=== PATIENT | female | born 1985 | race Caucasian/White ===

== ENCOUNTER 2016-12-05 04:06 | Emergency (ER) | payer BC ==
[~2016-12-05] VITALS: Ht 157.5 cm; Wt 49.6 kg
[~2016-12-05 04:06] MED LIST: NAPR250T2 PO
[2016-12-05 04:11] VITALS: TEMP 37; Ht 157.5 cm; Wt 49.6 kg
[2016-12-05] MEDS ORDERED: ONDANSETRON 4MG OD TAB PO STA (04:24)
[2016-12-05] MEDS ORDERED: KETOROLAC TROMETHAMINE 60 MG/2 ML VIAL IM STA (04:24)
--- NOTE | 2016-12-05 04:26 | EMERGENCY ROOM VISIT NOTE ---
History Report prepared by Jamila: Severino Kraus Under the Supervision of: Dr. Alma Stevens D.O. First contact with patient: 04:12 Chief Complaint: HEADACHE Stated Complaint: MIGRAINE History of Present Illness The patient is a 31 year old female who presents to the Emergency Room with complaints of a persistent migraine headache since 0800 yesterday. The patient had three doses of Imitrex, which has not helped. The patient also experienced multiple episodes of vomiting since the onset of her headache. She is slightly photophobic. The patient denies any urinary or bowel issues. The patient is not sure what triggered this migraine, although past migraines have been triggered by menstrual periods. The patient has not had increased stress or anxiety lately. She denies the possibility of . Source of History: patient Onset: 0800 yesterday Position: head Quality: other (migraine) Timing: other (persistent) Associated Symptoms: + nausea, + vomiting, No diarrhea, No urinary symptoms Review of Systems See HPI for pertinent positives & negatives. A total of 10 systems reviewed and were otherwise negative. Past Medical & Surgical Medical Problems: (1) Bronchitis (2) Conjunctivitis (3) Cough (4) Headache (5) Low back pain (6) Migraine (7) Pharyngitis (8) Pneumonia (9) Pneumonia (10) Spasm of back muscles (11) Strep pharyngitis Surgical Problems: (1) H/O removal of cyst Family History Cancer Diabetes mellitus Heart disease Hypertension Social History Smoking Status: Current Every Day Smoker Alcohol Use: none Drug Use: none Marital Status: single Housing Status: lives with significant other Occupation Status: employed Current/Historical Medications Scheduled PRN Irodkmn-Wtbcbnigrvibg-Hasorrgl (Excedrin Migraine), 1 TAB PO Q8 PRN for Migraine Naproxen (Naprosyn), 750 MG PO Q6H PRN for Pain Sumatriptan Succinate (Imitrex), 50 MG PO UD PRN for Migraine Allergies Coded Allergies: Shellfish (Verified Allergy, Mild, -, 10/15/16) Amoxicillin (Verified Allergy, Unknown, unknown, 10/15/16) Penicillins (Verified Allergy, Unknown, 10/15/16) Physical Exam Vital Signs Date Time Temp Pulse Resp B/P Pulse Ox O2 Delivery O2 Flow Rate FiO2 12/05/16 05:42 82 18 92/64 100 12/05/16 04:11 37.0 99 18 95/55 98 Room Air Physical Exam HEENT: Head - normocephalic and atraumatic Pupils are equal, round, and reactive to light. Extraocular eye muscles are intact, and sclera are anicteric. Nose - moist nasal mucosa without discharge. Mouth - moist buccal mucosa. Oropharynx is nonerythematous and there is no tonsillar exudate or edema noted. Neck: Supple; no JVD, nuchal rigidity, cervical lymphadenopathy. Heart: Regular rate and rhythm. There is a normal S1 and S2 with no murmurs, clicks, or gallops appreciated. Lungs: Clear to auscultation bilaterally with no wheezes, rales, or rhonchi. Abdomen: Soft, completely nontender, nondistended, with good bowel sounds. There are no palpable pulsatile masses or hepatosplenomegaly. There is no guarding, rigidity, or rebound noted. Extremities: No evidence of cyanosis, clubbing, or edema. There are easily palpable peripheral pulses. Skin: warm and dry with good turgor and no rashes. Medical Decision & Procedures Medications Administered Medications (Trade) Dose Ordered Sig/Jen Route Start Time Stop Time Status Last Admin Dose Admin Ketorolac Tromethamine (Toradol Inj) 45 mg NOW STAT IM 12/05/16 04:24 12/05/16 04:26 DC 12/05/16 04:32 45 MG Ondansetron HCl (Zofran Odt) 4 mg NOW STAT PO 12/05/16 04:24 12/05/16 04:26 DC 12/05/16 04:31 4 MG Oxycodone/ Acetaminophen (Percocet 5/ 325MG Home Pack) 1 homepack UD ONCE PO 12/05/16 05:30 12/05/16 05:31 DC 12/05/16 05:39 1 HOMEPACK Procedure Medications administered include Zofran PO, Toradol IM, Percocet PO home pack. ED Course 0420: Past medical records reviewed. The patient was evaluated in room B9. A complete history and physical exam was performed. 0424: Zofran Odt 4 mg PO, Toradol 45 mg IM. 0528: The patient had some nausea relief. She still has pain. I offered her an IV, which she declined. She would like something to take home since she drove herself here 0530: Percocet 5/325 mg PO home pack. 0530: Explained everything to her. She verbalized understanding and agreement of the treatment plan. The patient is ready for discharge. Medical Decision The patient is a 31 year old female who presents to the ED with a migraine. Differential diagnosis includes migraine, tension headache, dehydration, cluster headache. This is a 31-year-old male patient with a history of migraines presents to the emergency department. This is an intractable migraine. She has been using Imitrex at home with no relief. The patient drove herself here and she did not want to wake her children. Toradol did not help with the pain. She was given a home pack of Percocet to use. This has helped in the past. Impression Primary Impression: Intractable migraine Scribe Attestation The scribe's documentation has been prepared under my direction and personally reviewed by me in its entirety. I confirm that the note above accurately reflects all work, treatment, procedures, and medical decision making performed by me. Departure Information Dispostion Home / Self-Care Referrals Wanda Florian, C.R.N.P. (PCP) Forms HOME CARE DOCUMENTATION FORM, IMPORTANT VISIT INFORMATION Patient Instructions A Signature Page, Headaches Migraine and Tension, My [facility] Additional Instructions Rest. take percocet - 1-2 tabs. every [address] not drive while taking this med
[2016-12-05] MEDS ORDERED: ASPI-390 PO (05:14)
[2016-12-05] MEDS ORDERED: PERCOCET HOME PACK PO ONE (05:30)
[2016-12-05 05:42] VITALS: BP 92/64; PULSE 82; O2SAT 100
[2017-03-26] MEDS ORDERED: SUMA50TA15 PO (15:58)
[2017-03-26] MEDS ORDERED: TYLOTC500 PO (21:41)
== END 2016-12-05 05:40 | disposition home or self-care (01) ==
LOC: C.EDB 04:07
DX: G43.909 Migraine, unspecified, not intractable, without status migrainosus (principal); F17.200 Nicotine dependence, unspecified, uncomplicated; Z86.19 Personal history of other infectious and parasitic diseases; Z88.0 Allergy status to penicillin; Z88.1 Allergy status to other antibiotic agents; Z91.030 Bee allergy status; Z80.9 Family history of malignant neoplasm, unspecified; Z83.3 Family history of diabetes mellitus; Z82.49 Family history of ischemic heart disease and other diseases of the circulatory system

== ENCOUNTER 2017-03-02 21:57 | Emergency (ER) | payer BC ==
[~2017-03-02] VITALS: Ht 157.5 cm; Wt 51.9 kg
[~2017-03-02 21:57] MED LIST changes: +ASPI-390 PO; +NAPR1TAB48 PO; -NAPR250T2 PO
[2017-03-02 22:00] VITALS: TEMP 36.8; Ht 157.5 cm; Wt 51.9 kg
[2017-03-02] MEDS ORDERED: PROMETHAZINE HCL INJ 12.5 MG in SODIUM CHLORIDE 0.9% 50ML 50 ML IM STA (22:39)
[2017-03-02] MEDS ORDERED: OXYCODONE IR HOME PACK PO ONE (22:45)
[2017-03-02] MEDS ORDERED: KETOROLAC TROMETHAMINE 15 MG/ML VIAL IM PRN (22:45)
[2017-03-02] MEDS ORDERED: PROMETHAZINE HCL INJ 25 MG/ML 1 ML VIAL IM STA (22:51)
[2017-03-02] MEDS ORDERED: KETOROLAC TROMETHAMINE 30 MG/ML VIAL IM STA (22:51)
[2017-03-02 23:16] VITALS: BP 104/66; PULSE 57; O2SAT 98
--- NOTE | 2017-03-03 01:01 | EMERGENCY ROOM VISIT NOTE ---
ED Visit Note First contact with patient: 22:34 CHIEF COMPLAINT: Migraine headache HISTORY OF PRESENT ILLNESS: This 31-year-old female patient presented to the emergency department with a gradual onset of a severe generalized headache that started earlier today. The patient states the migraine is similar to their typical migraines. There has been associated photophobia, phonophobia, nausea and vomiting. The patient denies fever or chills recently, and there is no weakness or numbness of the extremities. There is no difficulty with speech or vision. No trauma to the head and no neck pain. The pain is severe, constant, and it is slowly increasing in severity. The patient rates the pain as dull and 7/10. The patient has taken Imitrex without relief. This is not the worst headache of the life and is similar to previous migraines. Previous imaging studies of the brain have been normal. REVIEW OF SYSTEMS: A review of systems was performed with positives and pertinent negatives listed in the history of present illness. All other systems were reviewed and are negative. ALLERGIES: See EMR MEDICATIONS: Imitrex PMH: Chronic migraines SOCIAL HISTORY: Employed and lives locally PHYSICAL EXAM: Vital Signs: Reviewed Nurse's notes, vital signs stable. GENERAL: White female, who appears in pain, but non toxic in appearance and in no acute distress. MENTAL STATUS: Alert, oriented, and coherent. HEENT: Normocephalic. PERRLA. EOMI. Nares patent without nuchal rigidity. Tympanic membranes pearly angulo without erythema or effusion bilaterally. Mucous membranes moist. NECK: Supple, no nuchal rigidity, nontender, no lymphadenopathy. HEART: Regular rhythm and normal rate without murmurs, ectopy, gallops, or rubs. LUNGS: Clear to auscultation bilaterally without wheezes, rales or rhonchi. No dullness to percussion. No accessory muscle use. No retractions. SKIN: Normal. NEUROLOGICAL: Pupils are round, equal and react to light. The optic fundi are normal and the discs are flat. The patient moves all extremities well and the gait is normal. EMERGENCY DEPARTMENT COURSE: I examined the patient. She appears to have a migraine headache that appears typical for her. The patient has been seen previously in the ER with migraine headaches over the years. She often does well with Toradol, and was given 45 mg IM Toradol and 12.5 mg IM Phenergan. She will also be given a home pack of OxyIR as this seems to have aborted her symptoms in the past. The patient is to follow with her primary care physician and neurologist for further management. She was discharged home under the care of a male iron miner blasting who is acting as the route sales delivery drivers supervisor. The differential diagnosis includes acute intracranial bleed, meningitis, encephalitis, mass or mass effect, sinusitis, infection, tumor, headache, temporal arteritis and carbon monoxide exposure, and migraine. Problem List Medical Problems: (1) Bronchitis Status: Resolved (2) Conjunctivitis Status: Resolved (3) Cough Status: Resolved (4) Headache Status: Resolved (5) Low back pain Status: Resolved (6) Migraine Status: Chronic (7) Pharyngitis Status: Resolved (8) Pneumonia Status: Resolved (9) Pneumonia Status: Resolved (10) Spasm of back muscles Status: Resolved (11) Strep pharyngitis Status: Resolved Surgical Problems: (1) H/O removal of cyst Status: Resolved Current/Historical Medications Scheduled PRN Sumatriptan Succinate (Imitrex), 50 MG PO UD PRN for Migraine Allergies Coded Allergies: Shellfish (Verified Allergy, Mild, -, 03/02/17) Amoxicillin (Verified Allergy, Unknown, unknown, 03/02/17) Penicillins (Verified Allergy, Unknown, 03/02/17) Vital Signs Date Time Temp Pulse Resp B/P Pulse Ox O2 Delivery O2 Flow Rate FiO2 03/02/17 23:16 57 18 104/66 98 03/02/17 22:00 36.8 73 16 103/73 99 Room Air Medications Administered Medications (Trade) Dose Ordered Sig/Jen Route Start Time Stop Time Status Last Admin Dose Admin Oxycodone HCl (Roxicodone Immediate Rel 5MG Home Pack) 1 homepack UD ONCE PO 03/02/17 22:45 03/02/17 22:46 DC 03/02/17 23:13 1 HOMEPACK Ketorolac Tromethamine (Toradol Inj) 45 mg NOW STAT IM 03/02/17 22:51 03/02/17 22:52 DC 03/02/17 22:56 45 MG Promethazine HCl (Phenergan Inj) 12.5 mg NOW STAT IM 03/02/17 22:51 03/02/17 22:52 DC 03/02/17 22:58 12.5 MG Departure Information Impression Primary Impression: Migraine Dispostion Home / Self-Care Condition GOOD Referrals Wanda Florian C.R.N.P. (PCP) Forms HOME CARE DOCUMENTATION FORM, IMPORTANT VISIT INFORMATION Patient Instructions My [facility] Additional Instructions You were seen and evaluated today on an emergency basis only. This is not a substitute for, or an effort to provide, complete comprehensive medical care. It is not possible to recognize and treat all injuries or illnesses in a single emergency department visit. For this reason it is recommended that you followup with your primary care physician or neurologist this week for ongoing care and evaluation. DO NOT drive, drink alcohol, operate machinery, or perform dangerous activities today. You were given medications in the ER that can affect your ability to safely function or operate a vehicle. Rest today in a quiet, peaceful, dark environment and get a full 8-10 hrs of sleep tonight. Avoid loud noises, smoke/smoking, alcohol, bright lights, stress, or physical exertion today to minimize the chance the headache may return. Continue current medications. Ibuprofen(Motrin, Advil) may be used for fever or pain. Use 600mg every six hours as needed. Take with food. Avoid using more than 2400mg in a 24 hour period. Do not use 2400mg per day for more than three consecutive days without physician direction. Prolonged inappropriate use can lead to stomach upset or ulcers. (AND/OR) Acetaminophen(Tylenol) may be used for fever or pain. Use 1000mg every six hours as needed. Avoid using more than 4000mg in a 24 hour period. Oxycodone (OxyIR) 5mg (homepack): Take ONE pill every SIX hours for breakthrough pain. Avoid alcohol, operating machinery or dangerous equipment, working on ladders or roofs, DRIVING, or situations where being under the influence may be dangerous. It is recommended to use an [id number] stool softener such as Colace, 100mg twice daily while taking this medication to avoid constipation. Return to the ER for passing out, worsening headache, vision problems, neck stiffness/pain, fevers, vomiting, worsening of your condition, or as needed.
[2017-10-17] MEDS ORDERED: SUMA50TA15 PO (15:58)
== END 2017-03-02 23:16 | disposition home or self-care (01) ==
LOC: C.EDB 21:58 → C.EDC 23:16
DX: G43.909 Migraine, unspecified, not intractable, without status migrainosus (principal)

== ENCOUNTER 2017-03-26 20:56 | Emergency (ER) | payer BC ==
[~2017-03-26] VITALS: Ht 157.5 cm; Wt 51.8 kg
[2017-03-26 21:00] VITALS: TEMP 36.6; Ht 157.5 cm; Wt 51.8 kg
[2017-03-26] MEDS ORDERED: PROCHLORPERAZINE 5 MG/ML 2 ML VIAL IM STA (21:46)
[2017-03-26] MEDS ORDERED: KETOROLAC TROMETHAMINE 60 MG/2 ML VIAL IM STA (21:46)
[2017-03-26] MEDS ORDERED: OXYCODONE IR HOME PACK PO ONE (22:30)
[2017-03-26 22:48] VITALS: BP 120/73; PULSE 68; O2SAT 98
--- NOTE | 2017-03-26 23:19 | EMERGENCY ROOM VISIT NOTE ---
History First contact with patient: 21:39 Chief Complaint: HEADACHE Stated Complaint: MIGRAINE History of Present Illness The patient is a 31 year old female who presents to the Emergency Room with complaints of a migraine headache with onset around 5 PM. The patient reports a history of frequent migraines as a teenager, then minimal headaches until a few years ago. The patient reports that she will develop migraines every month , one day after her onset of menses. She has not discussed this with her PCP or CONTENT CHECKER. The patient tries taking Imitrex which did not help this time. She reports that her headache today is left-sided. It is more frequently right sided, but does have left-sided migraines. She reports photophobia, phonophobia and nausea. She has had no vomiting with this migraine, and frequently does have vomiting. She denies any recent head injury, upper respiratory infection or risk of carbon monoxide exposure. She rates her discomfort an 8 out of 10. Review of Systems 10 system review was performed and was negative except for pertinent positives and negatives as indicated in history of present illness Past Medical/Surgical History Medical Problems: (1) Bronchitis (2) Conjunctivitis (3) Cough (4) Headache (5) Low back pain (6) Migraine (7) Pharyngitis (8) Pneumonia (9) Pneumonia (10) Spasm of back muscles (11) Strep pharyngitis Surgical Problems: (1) H/O removal of cyst Family History Cancer Diabetes mellitus Heart disease Hypertension Social History Smoking Status: Current Every Day Smoker Alcohol Use: none Drug Use: none Marital Status: single Housing Status: lives with significant other Occupation Status: employed Current/Historical Medications Scheduled PRN Acetaminophen (Tylenol), 1,000 MG PO Q6H PRN for Headache or Pain Sumatriptan Succinate (Imitrex), 50 MG PO UD PRN for Migraine Allergies Coded Allergies: Shellfish (Verified Allergy, Mild, -, 03/02/17) Amoxicillin (Verified Allergy, Unknown, unknown, 03/02/17) Penicillins (Verified Allergy, Unknown, 03/02/17) Physical Exam Vital Signs Date Time Temp Pulse Resp B/P Pulse Ox O2 Delivery O2 Flow Rate FiO2 03/26/17 22:48 68 18 120/73 98 03/26/17 22:47 68 18 120/73 98 Room Air 03/26/17 21:00 36.6 86 18 116/76 97 Room Air Physical Exam CONSTITUTIONAL: Healthy and well nourished. Alert and oriented X 3 with positive affect. Patient appears in moderate discomfort from her headache. She is resting in a darkened room. HEENT: Normocephalic, atraumatic. Pupils equal, round and reactive. The patient is photophobic, precluding funduscopic exam. NECK: Full active range of motion without discomfort. No JVD or carotid bruits. No nuchal rigidity. RESPIRATORY: Clear to auscultation bilaterally with no wheezing, crackles, rhonchi or stridor. CARDIOVASCULAR: Regular rate and rhythm with no murmurs, rubs or gallops. MUSCULOSKELETAL: Full range of motion of all joints without discomfort. No tenderness to palpation across the shoulders. INTEGUMENTARY: No rash or other significant dermatologic conditions noted. NEUROLOGIC: Cranial nerves II-XII grossly intact. No focal neurologic deficits noted. Normal finger to nose test. Negative pronator drift. No ataxia with ambulation. Medical Decision & Procedures Medications Administered Medications (Trade) Dose Ordered Sig/Jen Route Start Time Stop Time Status Last Admin Dose Admin Ketorolac Tromethamine (Toradol Inj) 60 mg NOW STAT IM 03/26/17 21:46 03/26/17 21:47 DC 03/26/17 22:06 60 MG Prochlorperazine Edisylate (Compazine Inj) 10 mg NOW STAT IM 03/26/17 21:46 03/26/17 21:47 DC 03/26/17 22:06 10 MG Oxycodone HCl (Roxicodone Immediate Rel 5MG Home Pack) 1 homepack UD ONCE PO 03/26/17 22:30 03/26/17 22:31 DC 03/26/17 22:39 1 HOMEPACK ED Course Patient history and physical exam were performed. Nurse's notes were reviewed. Vital signs were reviewed and were normal. Review of prior medical records shows that the patient usually receives IM Toradol and either Zofran ODT or IM Phenergan for nausea. The patient was in agreement to try IM Compazine today. She was administered Toradol 60 mg and Compazine 10 mg IM. This reduced her headache to a 2 out of 10, and the patient requested discharge home. Patient was encouraged to rest and remain well-hydrated. She was encouraged to take her Imitrex if her migraine rebounds. She was provided a OxyIR home pack without prescriptions. She was instructed to return to the emergency department as needed. The patient voiced understanding of all discharge instructions, and was happy with plan of care. Medical Decision The patient presents to the emergency department with complaint of a menstrual headache/migraine. She does have a history of migraines. Based on history and physical exam findings, I do not suspect intracranial hemorrhage, meningitis, CVA/TIA, thromboembolic event, abscess or carbon monoxide poisoning. Impression Primary Impression: Migraine Departure Information Dispostion Home / Self-Care Referrals Wanda Florian C.R.N.P. (PCP) Forms HOME CARE DOCUMENTATION FORM, IMPORTANT VISIT INFORMATION Patient Instructions My [facility] Additional Instructions Rest and remain well-hydrated. Try your Imitrex shot if the migraine returns. Suggest follow-up with your CONTENT CHECKER to discuss your menstrual headaches. Problem Qualifiers Primary Impression: Migraine Migraine type: unspecified Status migrainosus presence: without status migrainosus Intractability: not intractable Qualified Codes: G43.909 - Migraine, unspecified, not intractable, without status migrainosus
[2017-10-17] MEDS ORDERED: SUMA50TA15 PO (15:58)
== END 2017-03-26 22:49 | disposition home or self-care (01) ==
LOC: C.EDB 20:57 → C.EDD 22:49
DX: G43.909 Migraine, unspecified, not intractable, without status migrainosus (principal); F17.200 Nicotine dependence, unspecified, uncomplicated; Z87.01 Personal history of pneumonia (recurrent); Z98.890 Other specified postprocedural states; Z83.3 Family history of diabetes mellitus; Z82.49 Family history of ischemic heart disease and other diseases of the circulatory system

== ENCOUNTER 2017-10-17 20:55 | Emergency (ER) | payer BC ==
[~2017-10-17] VITALS: Ht 157.5 cm; Wt 53.2 kg
[~2017-10-17 20:55] MED LIST changes: -ASPI-390 PO; -NAPR1TAB48 PO; +SUMA50TA15 PO
[2017-10-17 20:57] VITALS: TEMP 36.8; Ht 157.5 cm; Wt 53.2 kg
--- NOTE | 2017-10-17 21:23 | EMERGENCY ROOM VISIT NOTE ---
History Report prepared by Jamila: Alen Mcnamara Under the Supervision of: Dr. David Vargas M.D. First contact with patient: 21:12 Chief Complaint: WEAKNESS Stated Complaint: EXTREME FATIGUE, SHAKES, WEAKNESS Nursing Triage Summary: pt reports shakiness, fatigue, feeling faint. "No matter what I do I am tired. I feel like I do when I'm on my period, but I'm not on it". Past couple days has been worse. Denies pain History of Present Illness The patient is a 32 year old female who presents to the Emergency Room with complaints of constant weakness beginning a few months ago. The patient notes that she has been weak for the past few months, which she has attributed to working and being a mother. She notes that she can sleep all day long and still be fatigued. She reports that her symptoms worsened today, and that she feels shaky and like she could pass out, prompting her visit to the emergency department. The patient states that her periods are very heavy and notes that when her period happens, she loses a lot of blood and feels more fatigued than usual. She denies having a fever, urinary symptoms, vomiting, diarrhea, abdominal pain, and chance of . She notes that her symptoms do not worsen when she stands, but states that she feels like she could easily fall asleep when she sits on the couch or in the car. She notes that she is worried that she might be anemic. Source of History: patient Onset: a few months ago Position: other (global) Quality: other (weakness) Timing: constant Associated Symptoms: No fevers, No vomiting, No abdominal pain, No diarrhea , No urinary symptoms Note: The patient also notes heavy periods which cause her to lose large amounts of blood. She denies any chance of . Review of Systems See HPI for pertinent positives & negatives. A total of 10 systems reviewed and were otherwise negative. Past Medical & Surgical Medical Problems: (1) Bronchitis (2) Conjunctivitis (3) Cough (4) Headache (5) Low back pain (6) Migraine (7) Pharyngitis (8) Pneumonia (9) Pneumonia (10) Spasm of back muscles (11) Strep pharyngitis Surgical Problems: (1) H/O removal of cyst Family History Cancer Diabetes mellitus Heart disease Hypertension Social History Smoking Status: Current Every Day Smoker Alcohol Use: none Drug Use: none Marital Status: single Housing Status: lives with significant other Occupation Status: employed Current/Historical Medications Scheduled PRN Acetaminophen (Tylenol), 1,000 MG PO Q6H PRN for Headache or Pain Sumatriptan Succinate (Imitrex), 50 MG PO UD PRN for Migraine Allergies Coded Allergies: Shellfish (Verified Allergy, Mild, -, 03/02/17) Amoxicillin (Verified Allergy, Unknown, unknown, 03/02/17) Penicillins (Verified Allergy, Unknown, 03/02/17) Physical Exam Vital Signs Date Time Temp Pulse Resp B/P (MAP) Pulse Ox O2 Delivery O2 Flow Rate FiO2 10/17/17 22:46 72 18 112/78 100 10/17/17 22:30 72 18 112/78 100 Room Air 10/17/17 21:49 64 18 120/68 100 Room Air 68 98/65 64 102/67 10/17/17 20:57 36.8 64 16 114/72 100 Room Air Physical Exam GENERAL: Patient is in no acute distress. HEENT: No acute trauma, normocephalic atraumatic, mucous membranes moist, no nasal congestion, no scleral icterus. No throat erythema or exudate. NECK: No stridor, no adenopathy, no meningismus, trachea is midline. LUNGS: Clear to auscultation bilaterally, no wheeze, no rhonchi, breath sounds equal. HEART: Without murmurs gallops or rubs, regular rate and rhythm. ABDOMEN: Soft, nontender, bowel sounds positive, no hernias, no peritonitis. EXTREMITIES: No cyanosis or edema, full range of motion of all the joints without pain or difficulty, no signs for acute trauma. NEUROLOGIC: Oriented x 3, no acute motor or sensory deficits, no focal weakness. SKIN: No rash, no jaundice, no diaphoresis. Medical Decision & Procedures ER Provider Diagnostic Interpretation: Radiology results as stated below per my review and radiologist interpretation: CHEST ONE VIEW PORTABLE FINDINGS: The lungs are clear. Cardiac silhouette is normal in size. No pleural effusions. No pneumothorax. IMPRESSION: No acute process. Electronically signed by: Oswald Lira M.D. 10/17/2017 9:46 PM Laboratory Results 10/17/17 21:36 Red Blood Count 4.49, Mean Corpuscular Volume 90.2, Mean Corpuscular Hemoglobin 31.2, Mean Corpuscular Hemoglobin Concent 34.6, Mean Platelet Volume 9.8, Neutrophils (%) (Auto) 70.1, Lymphocytes (%) (Auto) 21.5, Monocytes (%) (Auto) 6.7, Eosinophils (%) (Auto) 1.2, Basophils (%) (Auto) 0.3, Neutrophils # (Auto) 6.82, Lymphocytes # (Auto) 2.09, Monocytes # (Auto) 0.65, Eosinophils # (Auto) 0.12, Basophils # (Auto) 0.03 10/17/17 21:36 Test 10/17/17 21:30 10/17/17 21:36 Urine Color YELLOW Urine Appearance CLOUDY (CLEAR) Urine pH 8.5 (4.5-7.5) Urine Specific [place] 1.010 (1.000-1.030) Urine Protein NEG (NEG) Urine Glucose (UA) NEG (NEG) Urine Ketones NEG (NEG) Urine Occult Blood 1+ (NEG) Urine Nitrite NEG (NEG) Urine Bilirubin NEG (NEG) Urine Urobilinogen NEG (NEG) Urine Leukocyte Esterase TRACE (NEG) Urine WBC (Auto) 1-5 /hpf (0-5) Urine RBC (Auto) 5-10 /hpf (0-4) Urine Hyaline Casts (Auto) 1-5 /lpf (0-5) Urine Epithelial Cells (Auto) 20-30 /lpf (0-5) Urine Bacteria (Auto) NEG (NEG) White Blood Count 9.73 K/uL (4.8-10.8) Red Blood Count 4.49 M/uL (4.2-5.4) Hemoglobin 14.0 g/dL (12.0-16.0) Hematocrit 40.5 % (37-47) Mean Corpuscular Volume 90.2 fL (80-100) Mean Corpuscular Hemoglobin 31.2 pg (25-34) Mean Corpuscular Hemoglobin Concent 34.6 g/dl (32-36) Platelet Count 220 K/uL (130-400) Mean Platelet Volume 9.8 fL (7.4-10.4) Neutrophils (%) (Auto) 70.1 % Lymphocytes (%) (Auto) 21.5 % Monocytes (%) (Auto) 6.7 % Eosinophils (%) (Auto) 1.2 % Basophils (%) (Auto) 0.3 % Neutrophils # (Auto) 6.82 K/uL (1.4-6.5) Lymphocytes # (Auto) 2.09 K/uL (1.2-3.4) Monocytes # (Auto) 0.65 K/uL (0.11-0.59) Eosinophils # (Auto) 0.12 K/uL (0-0.5) Basophils # (Auto) 0.03 K/uL (0-0.2) RDW Standard Deviation 42.3 fL (36.4-46.3) RDW Coefficient of Variation 12.9 % (11.5-14.5) Immature Granulocyte % (Auto) 0.2 % Immature Granulocyte # (Auto) 0.02 K/uL (0.00-0.02) Anion Gap 8.0 mmol/L (3-11) Est Creatinine Clear Calc Drug Dose 105.7 ml/min Estimated GFR () 140.0 Estimated GFR (Non- 120.8 BUN/Creatinine Ratio 14.2 (10-20) Calcium Level 8.3 mg/dl (8.5-10.1) Magnesium Level 2.3 mg/dl (1.8-2.4) Total Bilirubin 0.6 mg/dl (0.2-1) Aspartate Amino Transf (AST/SGOT) 13 U/L (15-37) Alanine Aminotransferase (ALT/SGPT) 16 U/L (12-78) Alkaline Phosphatase 47 U/L (45-117) Total Protein 7.5 gm/dl (6.4-8.2) Albumin 3.9 gm/dl (3.4-5.0) Globulin 3.6 gm/dl (2.5-4.0) Albumin/Globulin Ratio 1.1 (0.9-2) Thyroid Stimulating Hormone (TSH) 1.300 uIu/ml (0.300-4.500) Human Chorionic Gonadotropin, Qual NEG (NEG) Laboratory results reviewed by me. ED Course 2112: The patient was evaluated in room A11. A complete history and physical exam was performed. 2201: Orthostatic vital signs show a slight decrease in blood pressure consistent with dehydration. 2239: Reevaluated the patient. Discussed results and discharge instructions: She verbalized understanding and agreement. The patient is ready for discharge. Medical Decision Differential diagnoses include: anemia, viral illness, thyroid disorder, , UTI, cardiomegaly, and electrolyte imbalance There is no leukocytosis or concerning anemia. No significant electrolyte abnormality, kidney failure or hepatitis. The patient appears to be in a euthyroid state. testing is negative. Urinalysis does not show infection. On exam, the patient was not febrile or toxic. Orthostatic vital signs did show a slight drop of the blood pressure with standing consistent with some dehydration. The patient was reassured by her testing. The cause for her fatigue and weakness is not clear. Certainly, a viral illness is possible, the patient was reassured. She is being discharged to follow with her doctors office. If she is worsening, she can return. Medication Reconcilliation Current Medication List: was personally reviewed by me Blood Pressure Screening Patient's blood pressure: Normal blood pressure Blood pressure disposition: Did not require urgent referral Impression Primary Impression: Generalized weakness Additional Impression: Fatigue Scribe Attestation The scribe's documentation has been prepared under my direction and personally reviewed by me in its entirety. I confirm that the note above accurately reflects all work, treatment, procedures, and medical decision making performed by me. Departure Information Dispostion Home / Self-Care Referrals No Doctor, Assigned (PCP) Forms HOME CARE DOCUMENTATION FORM, IMPORTANT VISIT INFORMATION Patient Instructions My [facility] Additional Instructions stay well hydrated rest lab testing today was all ok follow with gil hernandez for a recheck this week Problem Qualifiers
[2017-10-17] MEDS ORDERED: TYLOTC500 PO (21:41)
[2017-10-17 21:47] LABS: BASO % 0.3 %; BASO ABS # 0.03 K/uL (0-0.2); COMPLETE YES; EOS % 1.2 %; HEMATOCRIT 40.5 % (37-47); IG% 0.2 %; LYMPH % 21.5 %; LYMPH ABS # 2.09 K/uL (1.2-3.4); MEAN CELL VOLUME 90.2 fL (80-100); MEAN CORPUSCULAR HEMOGLOBIN 31.2 pg (25-34); MEAN CORPUSCULAR HGB CONC 34.6 g/dl (32-36); MEAN PLATELET VOLUME 9.8 fL (7.4-10.4); MONO % 6.7 %; NEUT % 70.1 %; PLATELET COUNT 220 K/uL (130-400); RED BLOOD COUNT 4.49 M/uL (4.2-5.4); WHITE BLOOD COUNT 9.73 K/uL (4.8-10.8)
--- NOTE | 2017-10-17 21:47 | DIAGNOSTIC IMAGING REPORT ---
CHEST ONE VIEW PORTABLE HISTORY: EVALUATE ALTERED MENTAL STATUS/WEAKNESS COMPARISON: Chest 09/03/2016. FINDINGS: The lungs are clear. Cardiac silhouette is normal in size. No pleural effusions. No pneumothorax. IMPRESSION: No acute process. Electronically signed by: Oswald Lira M.D. 10/17/2017 9:46 PM Dictated Date/Time: 10/17/2017 9:45 PM
[2017-10-17 21:49] LABS: URINE APPEARANCE CLOUDY (CLEAR); URINE BILIRUBIN NEG (NEG); URINE COLOR YELLOW; URINE EPITHELIAL CELL AUTO 20-30 /lpf (0-5); URINE NITRITE NEG (NEG); URINE PH 8.5 (4.5-7.5); UROBILINOGEN NEG (NEG); ZZUR CULT IF INDIC CLEAN CATCH NO
[2017-10-17 21:51] LABS: MANUAL MICROSCOPIC REQUIRED? NO; REVIEW REQ? NO
[2017-10-17 22:12] LABS: BUN/CREATININE RATIO 14.2 (10-20); CALCIUM 8.3 mg/dl (8.5-10.1); CREATININE 0.61 mg/dl (0.60-1.20); MAGNESIUM 2.3 mg/dl (1.8-2.4); POTASSIUM 3.2 mmol/L (3.5-5.1)
[2017-10-17 22:23] LABS: ALB/GLOB RATIO 1.1 (0.9-2); THYROID STIMULATING HORMONE 1.3 uIu/ml (0.300-4.500)
[2017-10-17 22:35] LABS: PREG INTERNAL NEGATIVE QC NEG CLEAR BACKGROUND; PREG INTERNAL POSITIVE QC POS CONTROL LINE
[2017-10-17 22:46] VITALS: BP 112/78; PULSE 72; O2SAT 100
== END 2017-10-17 22:47 | disposition home or self-care (01) ==
LOC: C.EDB 20:57 → C.EDA 22:47
DX: R53.1 Weakness (principal); R53.83 Other fatigue; G43.909 Migraine, unspecified, not intractable, without status migrainosus; F17.200 Nicotine dependence, unspecified, uncomplicated; Z80.9 Family history of malignant neoplasm, unspecified; Z83.3 Family history of diabetes mellitus; Z82.49 Family history of ischemic heart disease and other diseases of the circulatory system

== ENCOUNTER 2017-12-11 19:26 | Emergency (ER) | payer BC, OTHER ==
[~2017-12-11] VITALS: Ht 157.5 cm; Wt 53.3 kg
[~2017-12-11 19:26] MED LIST changes: +TYLOTC500 PO
[2017-12-11 19:29] VITALS: TEMP 36.7; Ht 157.5 cm; Wt 53.3 kg
[2017-12-11] MEDS ORDERED: PROCHLORPERAZINE 5 MG/ML 2 ML VIAL IM STA (19:45)
[2017-12-11] MEDS ORDERED: KETOROLAC TROMETHAMINE 60 MG/2 ML VIAL IM STA (19:45)
--- NOTE | 2017-12-11 19:53 | EMERGENCY ROOM VISIT NOTE ---
History Report prepared by Scribe: Raya Bloom Under the Supervision of: Dr. William Avendaño D.O. First contact with patient: 19:38 Chief Complaint: HEADACHE Stated Complaint: MIGRAINE,VOMITING,NAUSEA History of Present Illness The patient is a 32 year old female who presents to the Emergency Room with complaints of a persistent headache for the past 2.5 days. She states when the headache first started, she was also nauseous and vomited "a whole bunch of times". She has experienced nausea and vomiting today, but not as frequently. Although she has a history of migraine headaches, she has never experienced a migraine "that has lasted for this long before". The patient rates her current discomfort as an 8/10 in severity. Light worsens her pain. Propranolol and Imitrex have provided minimal relief. She denies any other symptoms at today's visit. Source of History: patient Onset: 2.5 days [employer]ING [employer]INE [employer] Position: head Symptom Intensity: 8/10 Timing: other (persistent) Modifying Factors (Worsening): other (exposure to light) Modifying Factors (Relieving): other (Propanolol, Imitrex) Associated Symptoms: + nausea, + vomiting Review of Systems See HPI for pertinent positives & negatives. A total of 10 systems reviewed and were otherwise negative. Past Medical & Surgical Medical Problems: (1) Bronchitis (2) Conjunctivitis (3) Cough (4) Headache (5) Low back pain (6) Migraine (7) Pharyngitis (8) Pneumonia (9) Pneumonia (10) Spasm of back muscles (11) Strep pharyngitis Surgical Problems: (1) H/O removal of cyst Family History Cancer Diabetes mellitus Heart disease Hypertension Social History Smoking Status: Current Every Day Smoker Alcohol Use: none Drug Use: none Marital Status: single Housing Status: lives with significant other Occupation Status: employed Current/Historical Medications Scheduled Multivitamin (Multivitamin), 1 TAB PO DAILY Propranolol (Inderal), 20 MG PO DAILY Scheduled PRN Ibuprofen Tab (Advil), 400 MG PO Q6H PRN for Pain Sumatriptan Succinate (Imitrex), 50 MG PO UD PRN for Migraine Allergies Coded Allergies: Shellfish (Verified Allergy, Mild, -, 03/02/17) Amoxicillin (Verified Allergy, Unknown, unknown, 03/02/17) Penicillins (Verified Allergy, Unknown, 03/02/17) Physical Exam Vital Signs Date Time Temp Pulse Resp B/P (MAP) Pulse Ox O2 Delivery O2 Flow Rate FiO2 12/11/17 20:57 70 18 121/66 97 12/11/17 19:29 36.7 75 18 102/60 99 Room Air Physical Exam GENERAL: Patient is awake, alert, and in no acute distress. Patient is resting comfortably and showing no signs of anxiety EYES: The conjunctivae are clear. The pupils are round and reactive. EARS, NOSE, MOUTH AND THROAT: The nose is without any evidence of any deformity. Mucous membranes are moist tongue is midline NECK: The neck is nontender and supple. RESPIRATORY: Normal respiratory effort is noted there is no evidence of wheezing rhonchi or rales CARDIOVASCULAR: Regular rate and rhythm noted there no murmurs rubs or gallops normal S1 normal S2 GASTROINTESTINAL: The abdomen is soft. Bowel sounds are present in all quadrants. Abdomen is nontender MUSCULOSKELETAL/EXTREMITIES: There is no evidence of gross deformity full range of motion is noted in the hips and shoulders SKIN: There is no obvious evidence of any rash. There are no petechiae, pallor or cyanosis noted. NEUROLOGIC: Patient is awake alert and oriented x3 strength is symmetric patellar reflexes are 2+ bilaterally Medical Decision & Procedures Medications Administered Medications (Trade) Dose Ordered Sig/Jen Route Start Time Stop Time Status Last Admin Dose Admin Ketorolac Tromethamine (Toradol Inj) 60 mg NOW STAT IM 12/11/17 19:45 12/11/17 19:47 DC 12/11/17 19:55 60 MG Prochlorperazine Edisylate (Compazine Inj) 10 mg NOW STAT IM 12/11/17 19:45 12/11/17 19:47 DC 12/11/17 19:55 10 MG ED Course 1943: The patient was evaluated in room A9B. A complete history and physical examination were performed. 1944: Compazine Inj. 10 mg IM, Toradol 60 mg IM. 2099: I reevaluated the patient. She is feeling better and resting comfortably. I discussed her results and discharge instructions and she verbalized complete understanding and agreement. Medical Decision Prior records/ancillary studies reviewed. Triage Nursing notes reviewed. The patient's history was concerning for headache. Differential diagnosis: Etiologies such as migraine headache, meningitis, sinusitis, CO exposure, ICH, SAH, infection, tumor, headache, sinus thrombosis, arterial dissection, as well as others were entertained. The patient is a 32-year-old female who presented to the emergency department for evaluation of headache. The patient states that she has a history of chronic headache and today's presentation appears to be similar to previous headaches except she's had this headache for a little bit longer than she is used to. The headache was not acute in onset. She had no meningismus or fever. She was treated with medication that she is received in the past. On subsequent reevaluation she was feeling much better. She was encouraged to rest and avoid any strenuous activity. He was also encouraged to continue all medications as prescribed and follow-up with her primary care physician for reevaluation and for possible further testing or a referral to a headache specialist. Otherwise she was encouraged to return to the emergency department immediately if symptoms change worsen or the need arises. Medication Reconcilliation Current Medication List: was personally reviewed by me Blood Pressure Screening Patient's blood pressure: Normal blood pressure Blood pressure disposition: Did not require urgent referral Impression Primary Impression: Headache Scribe Attestation The scribe's documentation has been prepared under my direction and personally reviewed by me in its entirety. I confirm that the note above accurately reflects all work, treatment, procedures, and medical decision making performed by me. Departure Information Dispostion Home / Self-Care Referrals No Doctor, Assigned (PCP) Patient Instructions Headaches Migraine and Tension, My [facility] Additional Instructions Continue all medications as prescribed. Avoid any strenuous activity. Call your family to schedule a follow-up appointment as soon as possible.
[2017-12-11] MEDS ORDERED: PROP20TA67 PO (20:11)
[2017-12-11] MEDS ORDERED: MULT-506 PO (20:12)
[2017-12-11] MEDS ORDERED: IBUP-103 PO (20:13)
[2017-12-11] MEDS ORDERED: OXYCODONE IR HOME PACK PO ONE (20:45)
[2017-12-11] MEDS ORDERED: ONDANSETRON HOME PACK 4MG OD TAB PO ONE (20:45)
[2017-12-11 20:57] VITALS: BP 121/66; PULSE 70; O2SAT 97
== END 2017-12-11 20:57 | disposition home or self-care (01) ==
LOC: C.EDB 19:27 → C.EDA 20:57
DX: R51 Headache (principal); R11.2 Nausea with vomiting, unspecified; F17.200 Nicotine dependence, unspecified, uncomplicated

== ENCOUNTER 2018-07-21 23:38 | Emergency (ER) | payer OTHER ==
[~2018-07-21] VITALS: Ht 157.5 cm; Wt 54.4 kg
[~2018-07-21 23:38] MED LIST changes: +HYDR25CA PO; +IBUP-103 PO; +MULT-506 PO; +PROP20TA67 PO; -TYLOTC500 PO
[2018-07-21 23:45] VITALS: TEMP 37; Ht 157.5 cm; Wt 54.4 kg
[2018-07-22] MEDS ORDERED: LORAZEPAM 1 MG TAB SL STA (00:43)
[2018-07-22] MEDS ORDERED: ATV/1 PO (00:44)
[2018-07-22] MEDS ORDERED: ATIVAN 1MG HOMEPACK PO ONE (00:45)
--- NOTE | 2018-07-22 00:46 | EMERGENCY ROOM VISIT NOTE ---
History Report prepared by Jamila: Jacinto Oconnor Under the Supervision of: Dr. Bubba Bethea M.D. First contact with patient: 23:55 Chief Complaint: ANXIETY Stated Complaint: ANXIETY ATTACK History of Present Illness The patient is a 32 year old female who presents to the Emergency Room with complaints of constant anxiety beginning this evening. The patient states she has a history of anxiety and takes 15mg of Buspirone three times a day. She reports this is the first day the medication did not work. The patient notes she also takes trazodone and Lexapro. She states her PCP, Dr. Salter, prescribes her medication. The patient reports she does not see a therapist, and she would like to speak with case management about establishing one. She notes she currently has chest pain and shortness of breath. The patient states she thinks it is solely anxiety and does not think cardiac enzymes need to be checked. She denies SI, HI, the chance of , a pertinent past medical history, and feeling as if she needs to be admitted. Source of History: patient Onset: this evening Quality: other (anxiety) Timing: constant Modifying Factors (Relieving): other (Buspirone) Associated Symptoms: + chest pain, + SOB Note: Denies SI, HI, the chance of Review of Systems See HPI for pertinent positives & negatives. A total of 10 systems reviewed and were otherwise negative. Past Medical & Surgical Medical Problems: (1) Bronchitis (2) Conjunctivitis (3) Cough (4) Headache (5) Low back pain (6) Migraine (7) Pharyngitis (8) Pneumonia (9) Pneumonia (10) Spasm of back muscles (11) Strep pharyngitis Surgical Problems: (1) H/O removal of cyst Family History Cancer Diabetes mellitus Heart disease Hypertension Social History Smoking Status: Current Every Day Smoker Alcohol Use: none Drug Use: none Marital Status: single Housing Status: lives with significant other Occupation Status: employed Current/Historical Medications Scheduled Hydroxyzine Pamoate (Vistaril), 1 CAP PO BID Multivitamin (Multivitamin), 1 TAB PO DAILY Propranolol (Inderal), 20 MG PO DAILY Scheduled PRN Ibuprofen Tab (Advil), 400 MG PO Q6H PRN for Pain Lorazepam (Ativan), 0.5 MG PO Q6H PRN for Anxiety/Agitation Sumatriptan Succinate (Imitrex), 50 MG PO UD PRN for Migraine Allergies Coded Allergies: Shellfish (Verified Allergy, Mild, -, 03/02/17) Amoxicillin (Verified Allergy, Unknown, unknown, 03/02/17) Penicillins (Verified Allergy, Unknown, 03/02/17) Physical Exam Vital Signs Date Time Temp Pulse Resp B/P (MAP) Pulse Ox O2 Delivery O2 Flow Rate FiO2 07/22/18 01:22 71 18 110/76 99 07/21/18 23:45 37.0 72 18 113/75 97 Room Air Physical Exam GENERAL: Awake, alert, well-appearing, in no acute distress HENT: Normocephalic, atraumatic. Oropharynx unremarkable. EYES: Normal conjunctiva. Sclera non-icteric. NECK: Supple. No nuchal rigidity. FROM. No JVD. RESPIRATORY: Clear to auscultation. CARDIAC: Regular rate, normal rhythm. Extremities warm and well perfused. Pulses equal. ABDOMEN: Soft, non-distended. No tenderness to palpation. No rebound or guarding. No masses. RECTAL: Deferred. MUSCULOSKELETAL: Chest examination reveals no tenderness. The back is symmetrical on inspection without obvious abnormality. There is no CVA tenderness to palpation. No joint edema. LOWER EXTREMITIES: Calves are equal size bilaterally and non-tender. No edema. No discoloration. NEURO: Normal sensorium. No sensory or motor deficits noted. SKIN: No rash or jaundice noted. PSYCH: Pt denies SI and HI. Medical Decision & Procedures Medications Administered Medications (Trade) Dose Ordered Sig/Jen Route Start Time Stop Time Status Last Admin Dose Admin Lorazepam (Ativan Tab) 1 mg NOW STAT SL 07/22/18 00:43 07/22/18 00:44 DC 07/22/18 01:12 1 MG Lorazepam (Ativan 1MG Home Pack) 1 homepack UD ONCE PO 07/22/18 00:45 07/22/18 00:46 DC 07/22/18 01:12 1 HOMEPACK ED Course 0037: Past medical records reviewed. The patient was evaluated in room C07. A complete history and physical examination was performed. I discussed results and treatment plan with the patient. She verbalizes agreement and understanding. The patient is ready for discharge after case management evaluation and receiving her medication. 0043: Ordered Lorazepam 1mg SL 0045: Ordered Lorazepam 1 homepack PO 0058: Psychiatric case management spoke with the patient. She is stable for discharge. Medical Decision Differential diagnosis: Etiologies such as mood disorder, infection, hypoglycemia, electrolyte abnormalities, cardiac sources, intracerebral event, toxicologic, neurologic, as well as others were entertained. This is a 32 year old female who presents to the ED during a period of high volume and high acuity. The patient was given multiple options for her anxiety including a full work up including EKG, cardiac enzymes and didimer however the patient is refusing. I gave her other options including inpatient care for anxiety however the patient is refusing this as well. The patient was then offered Ativan which she accepted. She also would like to speak with case management to get her in sooner with a therapist. The patient and were in agreement with treatment plan. The patient denies being suicidal or homicidal and I therefore feel that she can be safely discharged home for follow -up with the primary care physician. Patient and were in agreement with the treatment plan. Medication Reconcilliation Current Medication List: was personally reviewed by me Blood Pressure Screening Patient's blood pressure: Normal blood pressure Blood pressure disposition: Did not require urgent referral Impression Primary Impression: Mood disorder Scribe Attestation The scribe's documentation has been prepared under my direction and personally reviewed by me in its entirety. I confirm that the note above accurately reflects all work, treatment, procedures, and medical decision making performed by me. Departure Information Dispostion Home / Self-Care Prescriptions Lorazepam (ATIVAN) 1 Mg Tab 0.5 MG PO Q6H Y for Anxiety/Agitation, #6 TAB Prov: Bubba Bethea MD 07/22/18 Referrals Jose Alberto Salter M.D. (PCP) Forms HOME CARE DOCUMENTATION FORM, IMPORTANT VISIT INFORMATION Patient Instructions Anxiety Disorder, My [facility] Additional Instructions You received narcotic or benzodiazepene medication while in the emergency room today. This is an addictive medication that may cause drowziness as well as constipation. Do not drive, operate heavy machinery, or drink alcohol under the influence of this medication. You have been examined and treated today on an emergency basis only. This is not a substitute for, or an effort to provide, complete comprehensive medical care. It is impossible to recognize and treat all injuries or illnesses in a single emergency department visit. It is therefore important that you follow up closely with Dr Dwyer. Call as soon as possible for an appointment. Thank you for your time and consideration. I look forward to speaking with you again soon. Please don't hesitate to call us if you have any questions.
[2018-07-22 01:22] VITALS: BP 110/76; PULSE 71; O2SAT 99
== END 2018-07-22 01:15 | disposition home or self-care (01) ==
LOC: C.EDB 23:39 → C.EDC 07-22 01:15
DX: F39 Unspecified mood [affective] disorder (principal); F17.200 Nicotine dependence, unspecified, uncomplicated; Z79.899 Other long term (current) drug therapy; Z91.013 Allergy to seafood; Z88.0 Allergy status to penicillin